=== PATIENT | male | born 1970 | race Caucasian/White ===

== ENCOUNTER 2018-01-14 21:04 | Inpatient (IN) | payer SELFPAY ==
[~2018-01-14] VITALS: Ht 170.2 cm; Wt 82.6 kg
[2018-01-14 22:29] LABS: CHLORIDE 105 mEq/L (98-107)
[2018-01-14 22:31] LABS: BASOPHILS % 0.8 % (0.0-2.0); EOSINOPHILS % 2.1 % (0.0-5.0); HEMATOCRIT. 43.3 % (42.0-52.0); HEMOGLOBIN. 14.7 g/dL (14.0-18.0); LYMPHOCYTES % 27.9 % (20.0-50.0); MEAN CORPUSCULAR HEMOGLOBIN 30.3 pg (28.0-32.0); MEAN CORPUSCULAR VOLUME 89.3 fL (80.0-94.0); MEAN PLATELET VOLUME 9.5 fl (7.4-10.4); MONOCYTES % 5.4 % (2.0-8.0); NEUTROPHILS % 63.8 % (40.0-76.0); PLATELET 232 x1000/uL (130-400); RED BLOOD CELL COUNT 4.85 mill/uL (4.7-6.1); RED CELL DISTRIBUTION WIDTH 13.6 % (11.6-14.6)
[2018-01-15] MEDS ORDERED: ASPIRIN 325MG EC TABLET PO SCH (01:07)
[2018-01-15] MEDS ORDERED: SODIUM CHLORIDE 0.9% 1,000 ML IV ONE (01:22)
[2018-01-15] MEDS ORDERED: DOCUSATE SODIUM 100MG CAPSULE PO PRN (09:30)
[2018-01-15] MEDS ORDERED: ACETAMINOPHEN 650MG/20.3ML UDC GT PRN (09:30)
[2018-01-15] MEDS ORDERED: IPRATROPIUM/ALBUTEROL 0.5-3(2.5)MG/3ML NEB INH PRN (09:30)
[2018-01-15] MEDS ORDERED: MAGNESIUM/ALUMINUM HYDROXIDE/SIMETHICONE 30ML UDC PO PRN (09:30)
[2018-01-15] MEDS ORDERED: ACETAMINOPHEN 325MG TABLET PO PRN (09:30)
[2018-01-15] MEDS ORDERED: HYDROCODONE/ACETAMINOPHEN 5/325MG TABLET PO PRN (09:30)
[2018-01-15] MEDS ORDERED: GUAIFENESIN 200MG/10ML SUGAR FREE UDC PO PRN (09:30)
[2018-01-15] MEDS ORDERED: ONDANSETRON HCL 4MG/2ML INJ IV PRN (09:30)
[2018-01-15] MEDS ORDERED: CLONIDINE 0.1MG TABLET PO PRN (09:30)
[2018-01-15] MEDS ORDERED: ACETAMINOPHEN 650MG SUPP PR PRN (09:30)
[2018-01-15] MEDS ORDERED: NA PHOS,M-B/NA PHOS,DI-BA ENEMA 118ML PR PRN (09:30)
[2018-01-15] MEDS ORDERED: DIPHENHYDRAMINE 50MG/ML VIAL IV PRN (09:30)
[2018-01-15 12:35] LABS: PARTIAL THROMBOPLASTIN TIME 24.7 sec (23.4-31.0)
[2018-01-15] MEDS: ENOXAPARIN 40MG/0.4ML SYR SUBCUT SCH (13:15)
[2018-01-15 13:18] LABS: EOSINOPHILS % 2.3 % (0.0-5.0); HEMATOCRIT. 41.8 % (42.0-52.0); MEAN CORPUSCULAR VOLUME 89.6 fL (80.0-94.0); MEAN PLATELET VOLUME 9.6 fl (7.4-10.4); MONOCYTES % 5.3 % (2.0-8.0); NEUTROPHILS % 57.4 % (40.0-76.0); PLATELET 215 x1000/uL (130-400); RED BLOOD CELL COUNT 4.67 mill/uL (4.7-6.1); RED CELL DISTRIBUTION WIDTH 13.7 % (11.6-14.6)
[2018-01-15 13:25] LABS: CHLORIDE 109 mEq/L (98-107)
[2018-01-15] MEDS ORDERED: REGADENOSON 0.4 MG/5 ML IV SCH (14:45)
[2018-01-15 17:40] VITALS: BP 125/83
[2018-01-15] MEDS: SODIUM CHLORIDE 0.45% 1,000 ML IV SCH ×2 (18:24→20:15)
[2018-01-15] MEDS: CLOPIDOGREL 75MG TABLET PO SCH (18:24)
[2018-01-15] MEDS ORDERED: ASPI-1159 PO (19:30)
[2018-01-15] MEDS ORDERED: ASPI-986 PO (19:30)
[2018-01-15] MEDS ORDERED: CARV3.1242 PO (19:31)
[2018-01-15] MEDS ORDERED: INFLUENZA VIRUS VACCINE(AFLURIA) 0.5ML SYR IM ONE (19:45)
[2018-01-15 19:58] LABS: CREATINE KINASE 52 IU/L (39-308)
[2018-01-15 19:59] LABS: CREATINE KINASE MB FRACTION < 1.0 ng/mL (0.5-3.6)
[2018-01-15 20:00] VITALS: BP 116/58
[2018-01-15] MEDS: SODIUM CHLORIDE 0.9% INJ 3ML FLUSH IVF SCH (20:15)
[2018-01-15] MEDS ORDERED: ATORVASTATIN CALCIUM 10MG TABLET PO SCH (21:00)
[2018-01-16] VITALS: BP 126/68
[2018-01-16] MEDS: SODIUM CHLORIDE 0.9% INJ 3ML FLUSH IVF SCH ×2 (03:43→14:02)
[2018-01-16 07:20] LABS: BASOPHILS % 0.9 % (0.0-2.0); EOSINOPHILS % 3.1 % (0.0-5.0); HEMATOCRIT. 41.5 % (42.0-52.0); HEMOGLOBIN. 13.9 g/dL (14.0-18.0); LYMPHOCYTES % 32.2 % (20.0-50.0); MEAN CORPUSCULAR HEMOGLOBIN 29.9 pg (28.0-32.0); MEAN CORPUSCULAR VOLUME 89.3 fL (80.0-94.0); MEAN PLATELET VOLUME 9.6 fl (7.4-10.4); MONOCYTES % 7.1 % (2.0-8.0); NEUTROPHILS % 56.7 % (40.0-76.0); PLATELET 211 x1000/uL (130-400); RED BLOOD CELL COUNT 4.65 mill/uL (4.7-6.1); RED CELL DISTRIBUTION WIDTH 13.8 % (11.6-14.6)
[2018-01-16 07:22] LABS: CHLORIDE 109 mEq/L (98-107)
[2018-01-16 07:42] LABS: LDL CHOLESTEROL 148 mg/dL (5-100)
[2018-01-16 07:43] LABS: CREATINE KINASE 44 IU/L (39-308); HDL CHOLESTEROL 30 mg/dL (40-59)
[2018-01-16 07:46] LABS: CREATINE KINASE MB FRACTION < 1.0 ng/mL (0.5-3.6)
[2018-01-16 08:00] VITALS: BP 100/52
[2018-01-16] MEDS ORDERED: ASPIRIN 81MG EC TABLET PO SCH (09:00)
[2018-01-16] MEDS: ENOXAPARIN 40MG/0.4ML SYR SUBCUT SCH (09:30)
[2018-01-16 11:12] LABS: CLARITY URINE CLEAR (CLEAR); COLOR URINE YELLOW (YELLOW); KETONES URINE NEGATIVE (NEGATIVE); LEUKOCYTE ESTERASE URINE NEGATIVE (NEGATIVE); NITRITE URINE NEGATIVE (NEGATIVE); OCCULT BLOOD URINE 1+ (NEGATIVE); PROTEIN URINE NEGATIVE (NEGATIVE); SPECIFIC GRAVITY URINE 1.014 (1.005-1.030); UROBILINOGEN URINE 0.2 E.U./dL (0.2-1.0)
[2018-01-16 11:38] LABS: *AMPHETAMINES SCREEN URINE NEGATIVE (NEGATIVE); *BARBITURATES SCREEN URINE NEGATIVE (NEGATIVE); *BENZODIAZEPINES SCREEN URINE NEGATIVE (NEGATIVE); *COCAINE SCREEN URINE NEGATIVE (NEGATIVE); CANNABINOID URINE SCREEN NEGATIVE (NEGATIVE); METHADONE URINE SCREEN NEGATIVE (NEGATIVE); OPIATES URINE SCREEN NEGATIVE (NEGATIVE); PHENCYCLIDINE URINE SCREEN NEGATIVE (NEGATIVE)
[2018-01-16] MEDS ORDERED: CLOP75TA16 PO (12:00)
[2018-01-16] MEDS ORDERED: ATOR10TA PO (12:00)
[2018-01-16] MEDS ORDERED: REGADENOSON 0.4 MG/5 ML IV ONE (12:24)
[2018-01-16] MEDS: CLOPIDOGREL 75MG TABLET PO SCH (14:01)
[2018-01-16 14:25] VITALS: BP 109/58
[2018-01-16 15:48] VITALS: BP 115/80
[2018-01-16 16:00] VITALS: BP 115/80
== END 2018-01-16 16:43 | disposition home or self-care (01) | DRG 198 ==
LOC: ER 21:04 → 7WST 23:54 → EDBEDREQ 23:56 → EDBEDREQTM 23:56 → ENRESERV 01-15 15:53
PROVIDERS: ADMIT Family Medicine; ATTEND Family Medicine
DX: R07.89 Other chest pain (principal); I25.10 Atherosclerotic heart disease of native coronary artery without angina pectoris; E78.00 Pure hypercholesterolemia, unspecified; E78.5 Hyperlipidemia, unspecified; I10 Essential (primary) hypertension; I49.8 Other specified cardiac arrhythmias; I25.2 Old myocardial infarction; Z95.5 Presence of coronary angioplasty implant and graft; Z91.041 Radiographic dye allergy status
CPT/HCPCS: 36415; 71045; 78452; 80061; 80305; 82550; 82553; 83880; 84484; 90686; 93005; 93017; 93306; 96360; 96361; 96372; 99285; A9500; J1650; J2785; J7030